=== PATIENT | female | born 1950 | race Caucasian/White ===

== ENCOUNTER → 2017-01-10 | Outpatient (CLI) | payer OTHER ==
--- NOTE | 2017-01-10 13:07 | MR ---
EXAMINATION TYPE: MR knee RT wo con DATE OF EXAM: 01/10/2017 COMPARISON: NONE HISTORY: Rt. knee medial pain, moderate effusion, and possible medial meniscal tear all per order. In ner knee pain and swelling for 2 weeks per patient. TECHNIQUE: Multiplanar, multisequence images of the knee is performed without IV contrast. FINDINGS: MEDIAL MENISCUS: Anterior horn is intact without tear. Seen best on sagittal image 10 confirmed on co gm image 20 there is increased signal towards a central avascular horn of the posterior meniscus, this extends to articular surface consistent with full-thickness tear. LATERAL MENISCUS: Anterior and posterior horns are intact without tear. CRUCIATE LIGAMENTS: The anterior and posterior cruciate ligaments are intact and unremarkable. COLLATERAL LIGAMENTS: The medial collateral ligament and lateral collateral ligament complex are inta ct and unremarkable. Mild edema is present along the anterior proximal fibers attachments seen best c oronal image 14 at distal femoral level of the MCL. EXTENSOR MECHANISM: Visualized quadriceps and patellar tendons are intact. EFFUSION: There is a small suprapatellar joint effusion. POPLITEAL CYST: No popliteal/bynum cyst. TRICOMPARTMENT SPACES: There is mild to moderate tricompartment joint space loss. Mild spurring is pr esent. CARTILAGE: Minimal fissuring of articular cartilage posterior patellar pole is seen best on sagittal image 15 on axial image 15 most pronounced superiorly and medially. There is also mild fissuring and cartilaginous loss medial and lateral tibiofemoral compartments. For reference posterior aspect dista l femur laterally on sagittal image 22. BONE MARROW SIGNAL: No focal abnormal marrow signal is appreciated. OTHER: No additional significant abnormality is appreciated. IMPRESSION: 1. Full-thickness tear posterior horn of medial meniscus is felt present. 2. Mild to moderate osteoarthritic changes as detailed above. 3. Mild MCL sprain.
== END | disposition home or self-care (01) ==
LOC: RADMRIMAIN 12:08
PROVIDERS: ATTEND Orthopaedic Surgery Sports Medicine
DX: S83.241A Other tear of medial meniscus, current injury, right knee, initial encounter (principal); S83.411A Sprain of medial collateral ligament of right knee, initial encounter; M17.11 Unilateral primary osteoarthritis, right knee